=== PATIENT | female | born 1990 | race Caucasian/White ===

== ENCOUNTER 2017-05-19 17:19 | Emergency (ER) | payer OTHER ==
[2017-05-19] MEDS ORDERED: LORAZEPAM INJ 2 MG/1 ML VIAL IV ONE (18:14)
[2017-05-19] MEDS ORDERED: DIPHENHYDRAMINE HCL 50 MG/ML VIAL IV ONE (18:16)
[2017-05-19] MEDS ORDERED: DEXTROSE 5%-NORMAL SALINE 1,000 ML IV ONE (18:16)
[2017-05-19] MEDS ORDERED: METOCLOPRAMIDE HCL INJ/PF 10 MG/2 ML SDV IV ONE (18:16)
--- NOTE | 2017-05-19 18:19 | ER Document Report ---
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 Patient was incarcerated last night and shortly thereafter started going into the withdrawal. The patient presents to the emergency room with nausea, vomiting, abdominal cramping. She does state that she has had some blood in the stool. - HPI Onset: Just prior to arrival Onset/Duration: Gradual Quality of pain: Cramping Severity: Mild Pain Level: 1 Associated symptoms: Chills, Nausea, Vomiting. denies: Shortness of breath Exacerbated by: Denies Relieved by: Denies Similar symptoms previously: No Recently seen / treated by doctor: No - Related Data Allergies/Adverse Reactions: No Known Allergies Allergy (Verified 05/19/17 23:06) Past Medical History - General Information source: Patient - Social History Smoking Status: Current Every Day Smoker Cigarette use (# per day): Yes - Half pack per day Chew tobacco use (# tins/day): No Frequency of alcohol use: None Drug Abuse: Heroin, Prescription drugs Lives with: Family Family History: None Patient has suicidal ideation: No Patient has homicidal ideation: No - Medical History Medical History: Negative Past Surgical History: Reports: Hx Orthopedic Surgery Review of Systems - Review of Systems Constitutional: denies: Chills, Fever EENT: No symptoms reported Cardiovascular: No symptoms reported Respiratory: No symptoms reported Gastrointestinal: See HPI Genitourinary: No symptoms reported Female Genitourinary: No symptoms reported Musculoskeletal: No symptoms reported Skin: No symptoms reported Hematologic/Lymphatic: No symptoms reported Neurological/Psychological: No symptoms reported Physical Exam - Vital signs Vitals: Resp Pulse Ox 21 H 100 05/19/17 17:55 05/19/17 17:55 Notes: Physical exam: GENERAL: 27-year-old female, actively vomiting HEAD: Atraumatic, normocephalic. EYES: Pupils equal round and reactive to light, extraocular movements intact, sclera anicteric, conjunctiva are normal. ENT: TMs normal, nares patent, oropharynx clear without exudates. Moist mucous membranes. NECK: Normal range of motion, supple without obvious mass or JVD. LUNGS: Breath sounds clear to auscultation bilaterally and equal. No wheezes rales or rhonchi. HEART: Regular rate and rhythm without murmurs, rubs or gallops. ABDOMEN: Soft, registrar assistant with 7 months , no evidence of peritoneal findings at this time. EXTREMITIES: Normal range of motion, no pitting or edema. No clubbing or cyanosis. NEUROLOGICAL: Cranial nerves II through XII grossly intact. Normal speech, moving all extremities. PSYCH: Normal mood, normal affect. SKIN: Warm, Dry, normal turgor, no rashes or lesions noted. Course - Re-evaluation Re-evalutation: 05/19/17 20:47 Note: The ultrasound shows a viable 28 week gestation . The patient has been treated with IV D5 normal saline, IV Reglan, IV Benadryl, IV Ativan. She does appear to be improved. I did perform a perineal exam and rectal exam in the presence of a railroad car repair supervisor (Zeny the nurse). There is no blood obvious in the vaginal canal. On rectal exam, she does have hemorrhoid. There is no gross bleeding. The tool is brown and sent for study. I discussed the case with Dr. Dc. The concern is that when the patient goes back to longterm, in active withdrawal, she may go into premature labor. The plan is to have the patient seen in labor check and then admitted for continued IV fluids and treatment of active withdrawal. - Vital Signs Vital signs: Temp Pulse Resp BP Pulse Ox 23 H 111/74 99 05/19/17 22:01 05/19/17 22:01 05/19/17 22:01 - Laboratory Result Diagrams: 05/19/17 18:04 05/19/17 18:04 Laboratory results interpreted by me: 05/19/17 05/19/17 05/19/17 18:04 18:04 18:04 Hgb 11.7 L Hct 34.1 L Seg Neutrophils % 86.5 H Lymphocytes % 10.2 L Absolute Neutrophils 8.9 H Chloride 108 H Carbon Dioxide 16 L Direct Bilirubin 0.5 H AST 43 H Alkaline Phosphatase 188 H Serum HCG, Qual POSITIVE H Urine Protein Urine Ketones Urine Bilirubin Urine Urobilinogen Ur Leukocyte Esterase Salicylates < 1.0 L Acetaminophen < 10 L 05/19/17 18:04 Hgb Hct Seg Neutrophils % Lymphocytes % Absolute Neutrophils Chloride Carbon Dioxide Direct Bilirubin AST Alkaline Phosphatase Serum HCG, Qual Urine Protein 100 H Urine Ketones 80 H Urine Bilirubin SMALL H Urine Urobilinogen 2.0 H Ur Leukocyte Esterase TRACE H Salicylates Acetaminophen - Diagnostic Test Radiology reviewed: Image reviewed, Reports reviewed - Ultrasound consistent with 28 week viable Critical Care Note - Critical Care Note Total time excluding time spent on procedures (mins): 60 Discharge - Discharge Clinical Impression: Vomiting, Opiate and benzodiazepine withdrawal, 28 weeks Condition: Stable Disposition: LABOR CHECK
[2017-05-19 18:28] LABS: APPEARANCE,URINE SLIGHTLY-CLOUDY; BILIRUBIN,URINE SMALL (NEGATIVE); CALCIUM OXALATE CRYSTALS,URINE FEW /HPF; COLOR,URINE AMBER; GLUCOSE, URINE NEGATIVE (NEGATIVE); KETONES,URINE 80 mg/dL (NEGATIVE); LEUKOCYTE ESTERASE,URINE TRACE (NEGATIVE); NITRITE,URINE NEGATIVE (NEGATIVE); PROTEIN,URINE 100 mg/dL (NEGATIVE); URINE SPECIFIC GRAVITY 1.031
[2017-05-19 18:34] LABS: ABSOLUTE MONOCYTES (AUTO) 0.3 10^3/uL (0.1-1.4); ABSOLUTE NEUT (AUTO) 8.9 10^3/uL (1.7-8.2); HEMATOCRIT 34.1 % (36.0-47.0); HEMOGLOBIN 11.7 g/dL (12.0-15.5); LYMPHOCYTES % (AUTO) 10.2 % (13-45); MEAN CORPUSCULAR HEMOGLOBIN 29.6 pg (27.0-33.4); MEAN CORPUSCULAR HGB CONC 34.2 g/dL (32.0-36.0); MEAN CORPUSCULAR VOLUME 87 fl (80-97); MONOCYTES % (AUTO) 3.3 % (3-13); PLATELET COUNT 334 10^3/uL (150-450); RED BLOOD COUNT 3.94 10^6/uL (3.72-5.28); RED CELL DISTRIBUTION WIDTH 12.8 % (11.5-14.0); SEGMENTED NEUTROPHILS % (AUTO) 86.5 % (42-78); TOTAL CELLS COUNTED % (AUTO) 100 %; WHITE BLOOD COUNT 10.3 10^3/uL (4.0-10.5)
[2017-05-19 18:39] LABS: URINE AMPHETAMINES SCREEN NEGATIVE; URINE BARBITURATES SCREEN NEGATIVE; URINE BENZODIAZEPINES SCREEN NEGATIVE; URINE COCAINE SCREEN NEGATIVE; URINE MARIJUANA (THC) SCREEN NEGATIVE; URINE METHADONE SCREEN NEGATIVE; URINE PHENCYCLIDINE SCREEN NEGATIVE
[2017-05-19 18:45] LABS: ALANINE AMINOTRANSFERASE 46 U/L (9-52); ALBUMIN 3.7 g/dL (3.5-5.0); ALKALINE PHOSPHATASE 188 U/L (38-126); ANION GAP 16 (5-19); ASPARTATE AMINO TRANSFERASE 43 U/L (14-36); BILIRUBIN,DIRECT 0.5 mg/dL (0.0-0.4); BILIRUBIN,TOTAL 0.8 mg/dL (0.2-1.3); BLOOD UREA NITROGEN 8 mg/dL (7-20); CALCIUM 9.9 mg/dL (8.4-10.2); CARBON DIOXIDE 16 mmol/L (22-30); CHLORIDE 108 mmol/L (98-107); GLUCOSE 104 mg/dL (75-110); LDH 449 U/L (313-618); POTASSIUM 3.7 mmol/L (3.6-5.0); SODIUM 139.9 mmol/L (137-145); TOTAL PROTEIN 7.5 g/dL (6.3-8.2)
[2017-05-19 18:46] LABS: ACETAMINOPHEN < 10 ug/mL (10-30); ALCOHOL < 10 mg/dL (NONE DETECTED); SALICYLATE < 1.0 mg/dL (2.0-20.0)
--- NOTE | 2017-05-19 20:10 | RADIOLOGY REPORT (SQ) ---
EXAM DESCRIPTION: U/S OB LIMITED COMPLETED DATE/TIME: 05/19/2017 7:24 pm REASON FOR STUDY: 7 months, blleding, opiate withdrawal COMPARISON: None. TECHNIQUE: Limited transabdominal grayscale ultrasound for evaluation of specific requested obstetri dario parameters. LIMITATIONS: None. FINDINGS: CERVICAL LENGTH: Not measured Closed. VIC: 14.0 cm. FHR: 155 beats per minute. PRESENTATION: Cephalic. OTHER: Posterior placenta IMPRESSION: LIMITED OBSTETRICAL ULTRASOUND WITH MEASURED PARAMETERS DELINEATED ABOVE. Trimester of : Third trimester - 28 weeks to delivery. TECHNICAL DOCUMENTATION: JOB ID: [id number] [place]-[id number] 2010 [employer]- All Rights Reserved
[2017-05-19 22:28] VITALS: BP 111/74
--- NOTE | 2017-05-20 12:03 | EKG REPORT ---
SEVERITY:- ABNORMAL ECG - SINUS RHYTHM NONSPECIFIC T ABNORMALITIES, ANTERIOR LEADS : Confirmed by: Bree Mckee 20-May-2017 12:02:33
== END 2017-05-19 22:28 | disposition admitted as inpatient to this hospital (09) ==
LOC: ER 17:19
DX: O99.323 Drug use complicating pregnancy, third trimester (principal); F11.23 Opioid dependence with withdrawal; F13.239 Sedative, hypnotic or anxiolytic dependence with withdrawal, unspecified; O26.893 Other specified pregnancy related conditions, third trimester; O21.2 Late vomiting of pregnancy; O99.333 Smoking (tobacco) complicating pregnancy, third trimester; F17.210 Nicotine dependence, cigarettes, uncomplicated; O22.43 Hemorrhoids in pregnancy, third trimester; Z3A.28 28 weeks gestation of pregnancy
CPT/HCPCS: 93005; 99291; 96361; 96374; 96375; 36415; 80307 ×4; 83615; 84703; 85025; 85384; 85362; 82272; 80053; 81001; 76815; 93010; J1200; J2765; J2060

== ENCOUNTER 2017-05-19 22:33 | Outpatient (CLI) | payer MEDICAID ==
--- NOTE | 2017-05-20 01:27 | RADIOLOGY REPORT (SQ) ---
EXAM DESCRIPTION: U/S OB LIMITED CLINICAL HISTORY: 27 years Female, cervical length, EGA for vaginal bleeding/abd pain COMPARISON: None. TECHNIQUE: Limited transabdominal third trimester obstetrical ultrasound performed. organ survey not performed. FINDINGS: Cervical length of 3.2 cm. There is a single intrauterine with a heart rate of 140 bpm position: Vertex. measurements: BPD: 7.94 cm compatible with an estimated gestational age of 31 weeks, 6 days. HC: 29.23 cm compatible with an estimated gestational age of 32 weeks, 2 days. AC:25.17 cm compatible with an estimated gestational age of 29 weeks, 3 days. FL: 5.64 cm compatible with an estimated gestational age of 29 weeks, 4 days. Estimated weight of 1476 g. 3 pounds, 4 ounces. 19th percentile. Ultrasound age average 30 weeks, 6 days. IMPRESSION: 1. Single live intrauterine with estimated gestational age of 30 weeks, 6 days. heart rate of 140 bpm.
== END 2017-05-20 00:58 | disposition home or self-care (01) ==
LOC: LC 22:33
PROVIDERS: ATTEND Student in an Organized Health Care Education/Training Program
PROC: 4A1HXCZ Monitoring of Products of Conception, Cardiac Rate, External Approach (ICD-10-PCS; principal; 2017-05-19)
DX: O47.03 False labor before 37 completed weeks of gestation, third trimester (principal); O46.93 Antepartum hemorrhage, unspecified, third trimester; Z3A.30 30 weeks gestation of pregnancy
CPT/HCPCS: 76815